=== PATIENT | male | born 1980 | race American Indian/Alaskan Native ===

== ENCOUNTER 2018-02-28 10:40 | Emergency (ER) | payer SELFPAY ==
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
--- NOTE | 2018-02-28 15:17 | Cat Scan Report ---
FINAL REPORT EXAM: CT FACIAL BONES WO CON HISTORY: left eye swollen and maxillary tenderness TECHNIQUE: CT of the facial bones performed. Axial images and coronal and sagittal reformatted images were obtained. PRIORS: None. FINDINGS: There are left orbital, sinus and zygoma fractures. Specifically, there is a large displaced the left orbital floor fracture with orbital fat herniated into the left maxillary sinus. Inferior rectus muscle extends slightly through the fracture defect. There is a zygomatic tripod fracture. Specifically there is a fracture involving the anterior wall of the right maxillary sinus which probably extends into the infraorbital rim. There is a comminuted displaced fracture of the zygomatic arch. There is a displaced fracture of the posterior lateral wall of the maxillary sinus as well as a displaced fracture of the left lateral orbital wall. There is also a fracture involving the body of this zygoma at its junction with superior orbital rim. The fracture involving the inner aspect of the orbital floor extends to involve the ostiomeatal complex which is opacified. There is blood in the left maxillary sinus. The grossly the left globe is intact. There is preseptal soft tissue swelling as well as soft tissue swelling involving the left cheek. The mandible appears intact. IMPRESSION: Left orbital, maxillary sinus wall, and zygoma fractures. These are displaced and comminuted. Specifics as above. Notable is large orbital floor fracture with orbital fat herniated into the maxillary sinus. The inferior rectus muscle extends partially through the fracture defect. Correlate clinically to exclude any muscle entrapment.
[2018-02-28] MEDS ORDERED: BOOSTRIX IM ONE (15:27)
[2018-02-28 16:56] VITALS: BP 150/96
[2018-02-28] MEDS ORDERED: MORPHINE ONE (17:01)
[2018-02-28] MEDS ORDERED: ZOFRAN ONE (17:01)
[2018-02-28] MEDS ORDERED: ZOFRAN IV ONE (17:04)
[2018-02-28] MEDS ORDERED: MORPHINE IV ONE (17:05)
== END 2018-02-28 17:52 | disposition other institution (70) ==
LOC: ED 10:40
DX: S02.82XB Fracture of other specified skull and facial bones, left side, initial encounter for open fracture (principal); S02.401B Maxillary fracture, unspecified side, initial encounter for open fracture; S02.40FB Zygomatic fracture, left side, initial encounter for open fracture; S20.419A Abrasion of unspecified back wall of thorax, initial encounter; F17.200 Nicotine dependence, unspecified, uncomplicated; Y04.0XXA Assault by unarmed brawl or fight, initial encounter; Y93.89 Activity, other specified; Y92.410 Unspecified street and highway as the place of occurrence of the external cause; Y99.8 Other external cause status
CPT/HCPCS: 70486; 90471; 90715; 96374; 96375; 99285; J2270; J2405